=== PATIENT | female | born 1940 | race Caucasian/White ===

== ENCOUNTER 2018-05-18 16:44 | Emergency (ER) | payer MEDICARE ==
[~2018-05-18] VITALS: Ht 154.9 cm; Wt 57.2 kg
[2018-05-18] MEDS ORDERED: ONDANSETRON HCL INJ 2 MG/ML VIAL IV STA (17:00)
[2018-05-18] MEDS ORDERED: MORPHINE SULFATE 2 MG/ML SYR IV STA (17:00)
[2018-05-18 18:00] LABS: BASOPHILS % 0.3 % (0.0-1.0); EOSINOPHILS # (AUTO) 0.1 (0.0-0.4); HEMOGLOBIN 12.1 g/dL (12.0-16.0); LYMPHOCYTES # (AUTO) 2.2 (1.0-3.2); MEAN CORPUSCULAR HEMOGLOBIN 28.5 pg (28-32); MEAN CORPUSCULAR HGB CONC 32.7 g/dL (31-35); MEAN CORPUSCULAR VOLUME 87.1 fL (81-99); MONOCYTES # (AUTO) 0.6 (0.2-0.8); MONOCYTES % 5.9 % (4.4-11.3); NEUTROPHILS # (AUTO) 6.5 (2.1-6.9); NEUTROPHILS % 69.4 % (38.7-80.0); PLATELET COUNT 209 x10e3/uL (140-360); RED BLOOD COUNT 4.25 x10e6/uL (3.6-5.1); RED CELL DISTRIBUTION WIDTH 13.8 % (11.7-14.4)
[2018-05-18 18:09] LABS: INR 1.06
[2018-05-18 18:10] LABS: PARTIAL THROMBOPLASTIN TIME 28.5 seconds (23.8-35.5)
[2018-05-18 18:19] LABS: ALANINE AMINOTRANSFERASE 20 IU/L (0-55); ALBUMIN 4.5 g/dL (3.5-5.0); ALBUMIN/GLOBULIN RATIO 1.2 (0.8-2.0); ALKALINE PHOSPHATASE 78 IU/L (40-150); ANION GAP 14.6 mmol/L (8-16); BLOOD UREA NITROGEN 29 mg/dL (7-26); BUN/CREATININE RATIO 35 (6-25); CALCIUM 9.9 mg/dL (8.4-10.2); CARBON DIOXIDE 25 mmol/L (22-29); CHLORIDE 102 mmol/L (98-107); CREATINE KINASE 228 IU/L (29-168); CREATININE, SERUM 0.84 mg/dL (0.57-1.11); EST GLOMERULAR FILTRATION RATE > 60 ML/MIN (60-); GLUCOSE 98 mg/dL (74-118); POTASSIUM 4.6 mmol/L (3.5-5.1); SODIUM 137 mmol/L (136-145)
[2018-05-18] MEDS ORDERED: LOSARTAN POTASS25 MG (18:30)
[2018-05-18] MEDS ORDERED: MELOXICAM7.5 MG PO (18:30)
[2018-05-18] MEDS ORDERED: EFFEXOR XR 3737.5 MG (18:30)
--- NOTE | 2018-05-18 19:34 | Diagnostic Imaging Report ---
EXAMINATION: CHEST SINGLE (PORTABLE) 05/18/2018 5:00 PM COMPARISON: None INDICATION: Broken humerus DISCUSSION: LINES: None. LUNGS: . No pneumonia or pulmonary edema. PLEURA: No pleural effusion or pneumothorax. HEART AND MEDIASTINUM: Normal heart size. Tortuosity of the thoracic aorta. BONES AND SOFT TISSUES: Surgical changes from prior cervical fusion. Reported right humeral fracture is outside the field of view. Multilevel degenerative changes of the thoracic spine. IMPRESSION: No acute cardiopulmonary disease. Greg Leach MD Signed by: Dr. Greg Leach M.D. on 05/18/2018 7:30 PM
[2018-05-18] MEDS ORDERED: FENTANYL 50 MCG/HR PATCH TOP ONE (19:45)
== END 2018-05-18 20:21 | disposition home or self-care (01) ==
LOC: ER 16:44
DX: S42.321A Displaced transverse fracture of shaft of humerus, right arm, initial encounter for closed fracture (principal); W11.XXXA Fall on and from ladder, initial encounter; Y92.828 Other wilderness area as the place of occurrence of the external cause; I10 Essential (primary) hypertension
CPT/HCPCS: 29105; 36415; 71045; 80053; 82550; 82553; 84484; 85025; 85610; 85730; 86850; 86900; 93005; 99283; J2270; J2405